=== PATIENT | female | born 1980 | race Two or more races ===

== ENCOUNTER 2017-03-05 07:43 | Outpatient (CLI) | payer OTHER ==
--- NOTE | 2017-03-05 14:07 | MRI Report ---
EXAM: MRI LUMBAR SPINE WITHOUT CONTRAST EXAM DATE: 03/05/2017 08:17 AM. CLINICAL HISTORY: LBP L-SIDED SCIATICA, W/SENSATION OF LUMBAR INST. COMPARISON: None. TECHNIQUE: Multiplanar, multisequence T1-weighted and fluid-sensitive sequences of the lumbar spine f rom T12 to S1 without contrast. Other: None. FINDINGS: Spinal Cord: The conus terminates at L1. The conus medullaris and cauda equina are unremarkable. Alignment: Normal alignment. No spondylolisthesis. Bone Marrow: Five [id number] lumbar vertebral bodies are assumed. No fractures are identified. N o destructive bone lesions. Disk Levels/Facets: T12-L1: Unremarkable. L1-L2: Slight annular disk bulge. No stenosis. L2-L3: Unremarkable. L3-L4: Minimal facet arthropathy. No stenosis. L4-L5: Minimal facet arthropathy. No stenosis. L5-S1: Mild disk dehydration. Slight annular disk bulge. Moderate to severe bilateral degenerative fa cet arthropathy with small left greater than right facet joint effusions and ligamentum flavum buckli ng. Mild left greater than right foraminal stenosis. No significant central canal stenosis. Musculature: Normal. No edema or fatty atrophy. Other: The partially visualized retroperitoneum is unremarkable. IMPRESSION: 1. L5-S1 moderate to severe degenerative facet arthropathy with small left greater than right facet j oint effusions. Mild left greater than right foraminal stenosis. Comment: The following findings are so common in adults without low back pain that while we report th eir presence, they must be interpreted with caution and in the context of the clinical situation. (Re ovi Pierson et al, Spine 2001) Prevalence of findings in patients without low back pain: Disk degeneration (any evidence): 92% Disk desiccation/T2 signal loss: 83% Disk height loss: 56% Disk bulge: 64% Disk protrusion: 32% Annular tear/high intensity zone: 38% [facility] Referring Provider Line: [phone] SITE ID: [id number]
== END 2017-03-05 07:44 | disposition home or self-care (01) ==
LOC: DI 07:43
PROVIDERS: ATTEND Physician Assistant
DX: M47.896 Other spondylosis, lumbar region (principal); M51.37 Other intervertebral disc degeneration, lumbosacral region; M25.48 Effusion, other site
CPT/HCPCS: 72148

== ENCOUNTER 2019-01-30 16:11 | Emergency (ER) | payer OTHER ==
[2019-01-30 17:25] LABS: BASOPHILS % (AUTO) 0.5 %; EOSINOPHILS # (AUTO) 0.1 10^3/uL (0.0-0.7); EOSINOPHILS % (AUTO) 1.8 %; HGB - HEMOGLOBIN 12.3 g/dL (12.0-16.0); LYMPHOCYTES # (AUTO) 1.9 10^3/uL (1.5-3.5); LYMPHOCYTES % (AUTO) 25.1 %; MEAN CORPUSCULAR HEMOGLOBIN 29.5 pg (27.0-31.0); MEAN CORPUSCULAR HGB CONC 34.1 g/dL (32.0-36.0); MEAN CORPUSCULAR VOLUME 86.6 fL (81.0-99.0); MEAN PLATELET VOLUME 9.8 fL (7.9-10.8); MONOCYTES # (AUTO) 0.5 10^3/uL (0.0-1.0); MONOCYTES % (AUTO) 6.2 %; NEUTROPHILS % (AUTO) 66.1 %; PLT - PLATELET COUNT 276 10^3/uL (130-450); RED BLOOD COUNT 4.17 10^6/uL (4.20-5.40); RED CELL DISTRIBUTION WIDTH 14.6 % (12.0-15.0); WHITE BLOOD COUNT 7.6 x10^3/uL (4.8-10.8)
[2019-01-30 17:41] LABS: ALBUMIN 4.7 g/dL (3.2-5.5); ALBUMIN/GLOBULIN RATIO 1.5 (1.0-2.2); BILIRUBIN,TOTAL 0.4 mg/dL (0.2-1.0); CALCIUM 9.1 mg/dL (8.5-10.3); CREATININE 0.7 mg/dL (0.4-1.0); TOTAL PROTEIN 7.9 g/dL (6.7-8.2)
--- NOTE | 2019-01-30 18:04 | XRAY Report ---
Reason: chest pain Procedure Date: 01/30/2019 Accession Number: [id number] / [id number] Procedure: XR - Chest 2 View X-Ray CPT Code: 18881 Final Report FULL RESULT: EXAM: CHEST RADIOGRAPHY EXAM DATE: 01/30/2019 05:38 PM. CLINICAL HISTORY: Chest pain. COMPARISON: None. TECHNIQUE: 2 views. FINDINGS: Lungs/Pleura: No focal consolidation. No pleural effusion. No pneumothorax. Normal volumes. Mediastinum: Heart and mediastinal contours are normal. Other: There is cholelithiasis. IMPRESSION: No acute cardiopulmonary abnormality. [facility]
--- NOTE | 2019-01-30 18:09 | ED Physician Documentation ---
PD HPI CHEST PAIN - Stated complaint Stated Complaint: CHEST, LEFT ARM PAIN, SOA - Chief complaint Chief Complaint: Cardiac - History obtained from History obtained from: Patient - History of Present Illness Timing - onset: Other (2-1/2 weeks of intermittent sharp left-sided chest pain radiating to left shoulder. Generally at rest. Not exertional. Does not awake her from sleep. No nausea or sweats. Some shortness of breath when it starts but only for seconds. The pain will last from seconds to minutes at a time. No pedal edema or calf pain. No history of heart or lung problems. No recent travel. No possibility of .) Review of Systems Constitutional: denies: Fever, Chills Cardiac: reports: Chest pain / pressure. denies: Palpitations Respiratory: reports: Dyspnea. 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 HEENT: Tonsil/Adenoidectomy - Present Medications Home Medications: Ambulatory Orders Medication Instructions Recorded Confirmed PARoxetine [Paxil] 10 mg ORAL DAILY 10/10/15 10/10/15 - Allergies Allergies/Adverse Reactions: Allergies Allergy/AdvReac Type Severity Reaction Status Date / Time Penicillins Allergy Severe Edema Verified 01/30/19 16:19 - Social History Does the pt smoke?: No Smoking Status: Never smoker Does the pt drink ETOH?: Yes Does the pt have substance abuse?: No PD ED PE NORMAL - Vitals Vital signs reviewed: Yes - General General: Alert and oriented X 3, No acute distress - HEENT HEENT: PERRL, EOMI - Neck Neck: Supple, no meningeal sign, No bony TTP - Cardiac Cardiac: RRR, No murmur, Other (Tender left anterior chest wall and shoulder musculature, equal radial pulses.) - Respiratory Respiratory: No respiratory distress, Clear bilaterally - Abdomen Abdomen: Non tender - Back Back: No CVA TTP, No spinal TTP - Extremities Extremities: No edema, No calf tenderness / cord - Neuro Neuro: Alert and oriented X 3, No motor deficit, No sensory deficit, Normal speech Results - Vitals Vitals: Vital Signs - 24 hr 01/30/19 01/30/19 16:19 17:51 Temperature 36.9 C Heart Rate 67 62 Respiratory 16 18 Rate Blood Pressure 121/77 111/94 H O2 Saturation 100 99 Oxygen O2 Source Room air - EKG (time done) 1631 Rate: Rate (enter#) (63) Rhythm: NSR [place]: Normal Intervals: Normal AR QRS: Normal Ischemia: Normal ST segments Computer interpretation: Agree with computer - Labs Labs: Laboratory Tests 01/30/19 01/30/19 01/30/19 17:21 17:21 17:21 WBC 7.6 RBC 4.17 L Hgb 12.3 Hct 36.1 L MCV 86.6 MCH 29.5 MCHC 34.1 RDW 14.6 Plt Count 276 MPV 9.8 Neut # (Auto) 5.0 Lymph # (Auto) 1.9 [place] # (Auto) 0.5 Eos # (Auto) 0.1 Baso # (Auto) 0.0 Absolute Nucleated RBC 0.00 Nucleated RBC % 0.0 Sodium 138 Potassium 3.3 L Chloride 108 Carbon Dioxide 22 Anion Gap 8.0 BUN 12 Creatinine 0.7 Estimated GFR (MDRD) 93 Glucose 87 Calcium 9.1 Total Bilirubin 0.4 AST 20 ALT 23 Alkaline Phosphatase 47 Troponin I High Sens < 2.3 L Total Protein 7.9 Albumin 4.7 Globulin 3.2 Albumin/Globulin Ratio 1.5 Lipase 37 PD MEDICAL DECISION MAKING - ED course ED course: This is a 38-year-old woman who has very atypical 2-1/2 weeks of chest pain with a normal EKG and negative troponin. Heart score 0. I considered pulmonary embolism in this patient. Clinically the pretest probability of pulmonary embolism is less than 15%. I applied to the PERC rules as follows: The patient's age is under 50, heart rate less than 100, oxygen saturation greater than 94%, the patient does not have a history of DVT or PE. Patient has no recent trauma or surgery. The patient has no hemoptysis. The patient is not on exogenous estrogens. The patient does not have clinical signs suggesting DVT. As such the patient ruled out for pulmonary embolism by PERC criteria. Departure - Departure Disposition: 01 Home, Self Care Clinical Impression: Atypical chest pain Condition: Good Record reviewed to determine appropriate education?: Yes Instructions: ED Chest Pain NonCardiac Comments: Call your doctor to arrange a follow-up appointment, make the next available appointment. In the interim, return anytime if worse or if new symptoms develop.
[2019-01-30 18:17] VITALS: BP 134/85
== END 2019-01-30 18:15 | disposition home or self-care (01) ==
LOC: ED 16:11
DX: R07.89 Other chest pain (principal)
CPT/HCPCS: 36415; 71046; 80053; 83690; 84484; 85025; 93005; 99283; 99284